=== PATIENT | female | born 1995 | race Caucasian/White ===

== ENCOUNTER 2018-02-06 23:25 | Emergency (ER) | payer OTHER ==
--- NOTE | 2018-02-07 00:12 | PDOC ---
History of Present Illness - General Chief Complaint: Pain Stated Complaint: SWOLLEN RT HAND Time Seen by Provider: 02/07/18 00:12 - History of Present Illness Initial Comments: 02/07/18 00:50 The patient is a 22 year old right and dominant female with no significant PMH who presents for evaluation of right hand pain. The patient reports that she caught her hand in a sliding door earlier today and has been experiencing pain around her knuckles since that time prompting her presentation to the ED for further evaluation. She denies any other injuries and otherwise denies fevers, chills, SOB, chest pain, nausea, vomiting, abdominal pain, numbness, tingling, or weakness. Past History - Suicide/Smoking/Psychosocial Hx Smoking History: Never smoked Have you smoked in the past 12 months: No Information on smoking cessation initiated: No Hx Alcohol Use: No Drug/Substance Use Hx: No Review of Systems - Review of Systems Comments:: 02/07/18 00:51 Constitutional: No fevers, chills, fatigue, malaise HEENT: No Rhinorrhea, nasal congestion, visual changes Cardiovascular: No chest pain, syncope, palpitations, lightheadedness Respiratory: No Cough, SOB, Hemoptysis, Gastrointestinal: No Abdominal pain, Nausea, Vomiting, Constipation, Diarrhea, Melena Genitourinary: No Dysuria, Frequency, Urgency, Hesitancy, Hematuria, Flank pain Musculoskeletal: Right hand pain. No Myalgia, arthralgia Skin: No rashes, itching, bruising, pallor Neurologic: No Headache, Dizziness, Numbness, Weakness, or Tingling Psychiatric: No Hallucinations. No SI or HI *Physical Exam - Vital Signs Last Vital Signs Temp Pulse Resp BP Pulse Ox 98.3 F 72 18 117/68 100 02/06/18 23:31 02/06/18 23:31 02/06/18 23:31 02/06/18 23:31 02/06/18 23:31 - Physical Exam Comments: 02/07/18 00:52 General Appearance: Nourished. No Apparent Distress HEENT: No Pharyngeal Erythema, Tonsillar Exudate, Tonsillar Erythema Neck: No Cervical Lymphadenopathy Respiratory/Chest: Lungs Clear, Normal Breath Sounds. No Crackles, Rales, Rhonchi, Wheezing Cardiovascular: Regular Rhythm, Regular Rate. No Murmur, Gallops, Rubs Gastrointestinal/Abdominal: Normal Bowel Sounds, Soft. No Guarding, Rebound, Tenderness Musculoskeletal: Full ROM of the right hand. Sensation to light touch and temperature intact distally. Tenderness to palpation along the 3rd metacarpal. No snuff box tenderness on exam. No CVA Tenderness Extremity: Normal Capillary Refill Integumentary: Normal Color, Dry, Warm Neurologic: Fully Oriented, Alert, Normal Mood/Affect, Normal Response, Moderate Sedation - Procedure Monitoring Vital Signs: Procedure Monitoring Vital Signs Temperature 98.3 F 02/06/18 23:31 Pulse Rate 72 02/06/18 23:31 Respiratory Rate 18 02/06/18 23:31 Blood Pressure 117/68 02/06/18 23:31 O2 Sat by Pulse Oximetry (%) 100 02/06/18 23:31 Medical Decision Making - Medical Decision Making 02/07/18 00:53 The patient is a 22 year old right and dominant female with no significant PMH who presents for evaluation of right hand pain. Given the patient's history and physical exam, we obtained plain films to evaluate further which were negative for acute fracture as preliminarily read by ED physician. We treated the patient with tylenol here in the ED and we are comfortable discharging the patient home with primary care provider follow up. We discussed the results, plan, and return precautions with the patient who voiced understanding and is agreeable with the plan. *DC/Admit/Observation/Transfer Diagnosis at time of Disposition: Hand pain, right - Discharge Dispostion Disposition: HOME Condition at time of disposition: Stable Decision to Admit order: No - Referrals Referrals: Marina Cao MD [Primary Care Provider] - - Patient Instructions Printed Discharge Instructions: DI for Hand Pain Additional Instructions: Please return to the ER if you experience concerning or worsening symptoms including worsening difficulty breathing, weakness, or chest pain. Your xray results were normal here in the ER. You may continue to use tylenol and ice to help relieve your pain at home. Please call to schedule a follow up appointment with your primary care provider within 2-3 days to discuss your ER visit and further management of your symptoms. - Post Discharge Activity Forms/Work/School Notes: Back to Work
[2018-02-07] MEDS ORDERED: ACETAMINOPHEN 500 MG TABLET (FP) PO ONE ×2 (00:27→01:19)
--- NOTE | 2018-02-07 00:44 | PDOC ---
Attending Attestation - Resident Resident Name: Emile Grande - ED Attending Attestation I have performed the following: I have examined & evaluated the patient, The case was reviewed & discussed with the resident, I agree w/resident's findings & plan, Exceptions are as noted - HPI HPI: 02/07/18 00:42 Px to R hand in RHD px. A door closed on her open, outstretched hand shortly before presentation. Pt endorses px, tenderness to base of D4 on R hand. No numbness or weakness - Physicial Exam PE: 02/07/18 00:43 Agree with exam as documented by resident - Medical Decision Making 02/07/18 00:43 Analgesia re-eval f/u XR of hand 02/07/18 01:24 XR without acute pathology/fx on my review DC
[2018-02-07] MEDS ORDERED: ACETAMINOPHEN 325 MG TABLET (FP) ONE (01:08)
[2018-02-07 01:29] VITALS: PULSE 74; TEMP 98.7
[2018-02-07 05:52] VITALS: BP 188/60
== END 2018-02-07 01:29 | disposition home or self-care (01) ==
LOC: JER 23:25
DX: M79.641 Pain in right hand (principal); W23.0XXA Caught, crushed, jammed, or pinched between moving objects, initial encounter; Y93.89 Activity, other specified; Y92.89 Other specified places as the place of occurrence of the external cause; Y99.8 Other external cause status
CPT/HCPCS: 73130-TC-RT-FY; 99281-25

== ENCOUNTER 2020-03-20 03:44 | Emergency (ER) | payer OTHER ==
[2020-03-20 03:59] VITALS: BP 124/77; PULSE 85; TEMP 98.8; BMI 35.4
[2020-03-20] MEDS ORDERED: ACETAMINOPHEN 500 MG TABLET (FP) PO ONE (04:10)
[2020-03-20] MEDS ORDERED: ACETAMINOPHEN 325 MG TABLET (FP) ONE (04:26)
[2020-03-20 05:31] LABS: EPI CELLS 33 /uL (0-25.1); HYALINE CASTS 2 /uL (0-3.1); URINE APPEARANCE CLOUDY; URINE BACTERIA 1422 /uL (0-1359); URINE BILIRUBIN NEGATIVE (NEGATIVE); URINE COLOR YELLOW; URINE GLUCOSE (UA) NEGATIVE (NEGATIVE); URINE KETONE NEGATIVE (NEGATIVE); URINE LEUK ESTERASE NEGATIVE (NEGATIVE); URINE NITRITE NEGATIVE (NEGATIVE); URINE PROTEIN NEGATIVE (NEGATIVE); URINE RBC 25 /uL (0-23.9); URINE UROBILINOGEN 0.2 mg/dL (0.2-1.0); URINE WBC 14 /uL (0-25.8)
== END 2020-03-20 06:05 | disposition home or self-care (01) ==
LOC: JER 03:44
DX: R10.2 Pelvic and perineal pain (principal)
CPT/HCPCS: 36415; 81003; 84703; 86780; 87086; 87389; 87491; 87591; 87661; 99284-25

== ENCOUNTER 2021-10-01 12:58 | Emergency (ER) | payer OTHER ==
[2021-10-01 13:04] VITALS: BP 123/84; PULSE 104; RESP 19; BMI 34.7
[2021-10-01 13:27] VITALS: TEMP 98.6
[2021-10-01 14:40] LABS: EPI CELLS 22 /uL (0-25.1); HYALINE CASTS 5 /uL (0-3.1); PH,URINE 5.5 (5.0-8.0); URINE APPEARANCE CLEAR; URINE BACTERIA 482 /uL (0-1359); URINE BILIRUBIN NEGATIVE (NEGATIVE); URINE COLOR DK YELLOW; URINE GLUCOSE (UA) NEGATIVE (NEGATIVE); URINE KETONE TRACE (NEGATIVE); URINE LEUK ESTERASE 2+ (NEGATIVE); URINE NITRITE NEGATIVE (NEGATIVE); URINE PROTEIN TRACE (NEGATIVE); URINE UROBILINOGEN 0.2 mg/dL (0.2-1.0); URINE WBC 177 /uL (0-25.8)
[2021-10-01 14:41] LABS: HCG,QUALITATIVE URINE Negative
[2021-10-01 14:52] LABS: URINE RBC 55.7 /uL (0-23.9)
== END 2021-10-01 16:01 | disposition home or self-care (01) ==
LOC: JER 12:58
DX: N30.00 Acute cystitis without hematuria (principal)
CPT/HCPCS: 36415; 81003; 84703; 87086; 87491; 87591; 99283-25